=== PATIENT | female | born 1965 | race Caucasian/White ===

== ENCOUNTER 2016-07-21 16:02 | Emergency (ER) | payer MEDICAID ==
[~2016-07-21] VITALS: Ht 154.9 cm; Wt 73.0 kg
[2016-07-21 16:46] VITALS: BP 132/74
--- NOTE | 2016-07-21 18:25 | NUR ---
PATIENT TO [facility]. BY Marita
--- NOTE | 2016-07-21 18:40 | NUR ---
STILL ATTEMPTING TO COLLECT URINE. BLOOD DRAW DONE
[2016-07-21 19:30] VITALS: BP 132/74
--- NOTE | 2016-07-21 19:56 | NUR ---
Patient discharged with v/s stable. Written and verbal after care instructions given and explained. Patient alert, oriented and verbalized understanding of instructions. Ambulatory with steady gait. All questions addressed prior to discharge. ID band removed. Patient advised to follow up with PMD. Rx of MACRODID 100MG given. Patient educated on indication of medication including possible reaction and side effects. Opportunity to ask questions provided and answered.
== END 2016-07-21 19:53 | disposition home or self-care (01) ==
LOC: MED 16:02
DX: N39.0 Urinary tract infection, site not specified (principal); E11.9 Type 2 diabetes mellitus without complications; E78.00 Pure hypercholesterolemia, unspecified